=== PATIENT | female | born 1940 | race Caucasian/White ===

== ENCOUNTER 2017-03-29 02:08 | Emergency (ER) | payer MEDICARE, BC ==
[~2017-03-29] VITALS: Ht 160 cm; Wt 79.5 kg
[~2017-03-29 02:08] MED LIST: BETH25 PO; CALC600T10 PO; CENTTAB9 PO; DIOV160T8 PO; ECASA PO; FEXO180 PO; FLOR250C PO; METO25 PO; OMEP20CA5 PO; RALO1TAB13 PO; ROSU20 PO; SYNT100T PO; VITA400C28 PO; VITA400C70 PO
[2017-03-29 02:21] VITALS: BP 165/59; PULSE 94; RESP 18; TEMP 99.9; O2SAT 97
[2017-03-29 02:25] VITALS: RESP 18; O2SAT 97
[2017-03-29] MEDS ORDERED: FLOR250C PO (02:44)
[2017-03-29] MEDS ORDERED: VITA200C3 PO (02:44)
[2017-03-29] MEDS ORDERED: DIOV80TA2 PO (02:44)
[2017-03-29] MEDS ORDERED: VITA250T3 PO (02:44)
[2017-03-29] MEDS ORDERED: ROSU20 PO (02:44)
[2017-03-29] MEDS ORDERED: OMEP20TA93 PO (02:44)
[2017-03-29] MEDS ORDERED: ASPI-516 CHEW (02:44)
[2017-03-29] MEDS ORDERED: METO50TA PO (02:44)
[2017-03-29] MEDS ORDERED: CALC1TAB87 PO (02:44)
[2017-03-29] MEDS ORDERED: LEVO.1 PO (02:44)
[2017-03-29] MEDS ORDERED: BETH25TA2 PO (02:44)
[2017-03-29] MEDS ORDERED: VITA1000 PO (02:44)
[2017-03-29] MEDS ORDERED: SODIUM CHLOR 0.9% 1000 ML INJ 1,000 ML IV SCH (04:18)
--- NOTE | 2017-03-29 04:18 | PD ---
HPI Chief Complaint: GI Complaint Time Seen by Provider: 04:14 Travel History International Travel<30 days: No Contact w/Intl Traveler<30days: No Traveled to known affect area: No History of Present Illness HPI The patient is a 76-year-old female that comes in tonight because of shaking followed by nausea and vomiting. She states the vomiting is only slight, small amount 2. She denies any diarrhea. The patient states that she saw her primary care physician yesterday and complete physical exam was done and a urine infection was found. She was given Bactrim DS but she did not take the medication yet. She does complain of some midline back pain and frequency of urination. She states the urine was cloudy and there were pus cells in the urine yesterday. She has already purchased her Bactrim DS, she just simply did not take it yet. PFSH Past Medical History Arthritis: No Asthma: No Autoimmune Disease: No Blood Disorders: No Anxiety: No Depression: No Heart Rhythm Problems: No Cancer: No Cardiac Catheterization: Yes (05/20/07) Cardiovascular Problems: Yes High Cholesterol: Yes (TAKES MEDS) Chest Pain: No Congestive Heart Failure: No COPD: No Cerebrovascular Accident: Yes (TIA) Coronary Artery Disease: Yes Diabetes: No Diminished Hearing: No Endocrine: Yes (HYPOTHYROID) Gastrointestinal Disorders: Yes (SEVERE GERD) GERD: Yes Glaucoma: No Genitourinary: No Headaches: No Hepatitis: No Hiatal Hernia: No Heparin Induced Thrombocytopen: No Hypertension: Yes (TAKES MEDS) Immune Disorder: No Kidney Stones: No Musculoskeletal: Yes Neurologic: Yes (ANUSYSM IN [facility] OF [place]--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 ) Psychiatric: No Reproductive: No Respiratory: No Integumentary: Yes ( UNDER WOUND CARE TO E FOR DOG BITE- WOUND HEALING WELL) Immunizations Current: Yes Migraines: No Myocardial Infarction: No Renal Failure: No Seizures: No Sickle Cell Disease: No Sleep Apnea: No Thyroid Disease: Yes Ulcer: No Tetanus Vaccination: Never Vaccinated Influenza Vaccination: Yes ?: Not Menopausal: Yes Past Surgical History Abdominal Surgery: Yes (APPENDECTOMY 1947) AICD: No Appendectomy: Yes (1947) Arteriovenous Shunt: No Cardiac Surgery: Yes (heart cath - 2006) Cholecystectomy: No Ear Surgery: No Endocrine Surgery: No Eye Surgery: Yes (cataracs both eyes-REMOVED 2005) Genitourinary Surgery: Yes (07/12/14 INTERSTEM BLADDER PACEMAKER) Gynecologic Surgery: Yes (HYSTERECTOMY/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) Hysterectomy: Yes Insulin Pump: No Joint Replacement: No Neurologic Surgery: No Oral Surgery: Yes (esophageal monomentry - 2006) Pacemaker: No Thoracic Surgery: No Other Surgery: Yes (left breast biopsy - 1991) Social History Alcohol Use: No Tobacco Use: No Substance Use: No Allergies-Medications (Allergen,Severity, Reaction): Coded Allergies: diatrizoate meglumine (Verified Allergy, Severe, FACIAL EDEMA, 03/29/17) gadobenic acid (Verified Allergy, Severe, FACIAL EDEMA, 03/29/17) gadodiamide (Verified Allergy, Severe, FACIAL EDEMA, 03/29/17) gadoteridol (Verified Allergy, Severe, FACIAL EDEMA, 03/29/17) iodixanol (Verified Allergy, Severe, FACIAL EDEMA, 03/29/17) iohexol (Verified Allergy, Severe, FACIAL EDEMA, 03/29/17) naproxen (Verified Allergy, Severe, ANAPHAXIS, 03/29/17) tetanus toxoid, adsorbed (Verified Allergy, Severe, EDEMA, 03/29/17) iodine (Verified Allergy, Unknown, UNKNOWN, 03/29/17) potassium iodide (Verified Allergy, Unknown, UNKNOWN, 03/29/17) povidone-iodine (Verified Allergy, Unknown, UNKNOWN, 03/29/17) sodium iodide (Verified Allergy, Unknown, UNKNOWN, 03/29/17) sodium iodide (Verified Allergy, Unknown, UNKNOWN, 03/29/17) Reported Meds & Prescriptions Reported Meds & Active Scripts Active Zofran (Ondansetron HCl) 4 Mg Tab 4 Mg PO Q6HR PRN Reported Florastor (Saccharomyces Boulardii) 250 Mg Cap 250 Mg PO BID Bethanechol 25 Mg Tab 25 Mg PO BID Calcium 600 with Vitamin D (Calcium Carbonate-Cholecalciferol) 600-400 mg-Unit Tab 2 Tab PO DAILY Vitamin C (Ascorbic Acid) 250 Mg Tab 500 Mg PO TID Vitamin D-1000 (Cholecalciferol) 1,000 Unit Tab 1,000 Units PO DAILY Vitamin E 200 Unit Cap 400 Units PO DAILY Aspirin 81 Mg Chew 81 Mg CHEW DAILY Metoprolol Tartrate 50 Mg Tab 50 Mg PO DAILY Omeprazole 20 Mg Tab 20 Mg PO DAILY Diovan Hct (Valsartan-Hydrochlorothiazide) 80-12.5 Mg Tab 1 Tab PO DAILY Crestor (Rosuvastatin Calcium) 20 Mg Tab 20 Mg PO DAILY Synthroid (Levothyroxine Sodium) 100 Mcg Tab 100 Mcg PO DAILY Review of Systems Except as stated in HPI: all other systems reviewed are Neg Physical Exam Narrative GENERAL: The patient is alert, oriented 3, moderately dehydrated and slight apparent distress with her abdominal discomfort. Her vital signs show blood pressure 165/59 with temperature 99.9 and heart rate of 94 but the rest of the vital signs are normal. SKIN: Focused skin assessment warm/dry. No skin rashes noted. HEAD: Atraumatic. Normocephalic. EYES: Pupils equal and round. No scleral icterus. No injection or drainage. ENT: No nasal bleeding or discharge. Mucous membranes pink and moist. NECK: Trachea midline. No JVD. CARDIOVASCULAR: Regular rate and rhythm. No murmur appreciated. RESPIRATORY: No accessory muscle use. Clear to auscultation. Breath sounds equal bilaterally. GASTROINTESTINAL: Abdomen soft, non-tender and only with some minimal discomfort in the suprapubic area midline., nondistended. Hepatic and splenic margins not palpable. No guarding or rebound is present. No flank tenderness is present. MUSCULOSKELETAL: No obvious deformities. No clubbing. No cyanosis. No edema. NEUROLOGICAL: Awake and alert. No obvious cranial nerve deficits. Motor grossly within normal limits. Normal speech. PSYCHIATRIC: Appropriate mood and affect; insight and judgment normal. Data Data Last Documented VS Vital Signs Date Time Temp Pulse Resp B/P (MAP) Pulse Ox O2 Delivery O2 Flow Rate FiO2 03/29/17 04:37 84 18 140/54 (82) 97 Room Air 03/29/17 02:21 99.9 Orders Orders Basic Metabolic Panel (Bmp) (03/29/17 04:18) Complete Blood Count With Diff (03/29/17 04:18) Urinalysis - C+S If Indicated (03/29/17 04:18) Iv Access Insert/Monitor (03/29/17 04:18) Ecg Monitoring (03/29/17 04:18) Oximetry (03/29/17 04:18) Ondansetron Inj (Zofran Inj) (03/29/17 04:30) Sodium Chlor 0.9% 1000 Ml Inj (Ns 1000 M (03/29/17 04:18) Sodium Chloride 0.9% Flush (Ns Flush) (03/29/17 04:30) Urine Culture (03/29/17 04:15) Ceftriaxone Inj (Rocephin Inj) (03/29/17 05:15) Sulfamet-Trimeth Ds 800-160 Mg (Bactrim (03/29/17 05:15) Ed Discharge Order (03/29/17 05:07) Labs Laboratory Tests Test 03/29/17 03:20 03/29/17 04:15 White Blood Count 9.3 TH/MM3 Red Blood Count 3.93 MIL/MM3 Hemoglobin 11.7 GM/DL Hematocrit 35.2 % Mean Corpuscular Volume 89.6 FL Mean Corpuscular Hemoglobin 29.7 PG Mean Corpuscular Hemoglobin Concent 33.1 % Red Cell Distribution Width 11.5 % Platelet Count 193 TH/MM3 Mean Platelet Volume 7.8 FL Neutrophils (%) (Auto) 90.7 % Lymphocytes (%) (Auto) 5.2 % Monocytes (%) (Auto) 2.4 % Eosinophils (%) (Auto) 1.1 % Basophils (%) (Auto) 0.6 % Neutrophils # (Auto) 8.4 TH/MM3 Lymphocytes # (Auto) 0.5 TH/MM3 Monocytes # (Auto) 0.2 TH/MM3 Eosinophils # (Auto) 0.1 TH/MM3 Basophils # (Auto) 0.1 TH/MM3 CBC Comment DIFF FINAL Differential Comment Blood Urea Nitrogen 13 MG/DL Creatinine 0.84 MG/DL Random Glucose 163 MG/DL Calcium Level 8.6 MG/DL Sodium Level 137 MEQ/L Potassium Level 3.7 MEQ/L Chloride Level 103 MEQ/L Carbon Dioxide Level 26.5 MEQ/L Anion Gap 8 MEQ/L Estimat Glomerular Filtration Rate 66 ML/MIN Urine Color YELLOW Urine Turbidity HAZY Urine pH 7.0 Urine Specific [place] 1.012 Urine Protein TRACE mg/dL Urine Glucose (UA) NEG mg/dL Urine Ketones NEG mg/dL Urine Occult Blood SMALL Urine Nitrite NEG Urine Bilirubin NEG Urine Leukocyte Esterase LARGE Urine RBC 4-9 /hpf Urine WBC 50-99 /hpf Urine Squamous Epithelial Cells 6-8 /hpf Urine Bacteria FEW /hpf Microscopic Urinalysis Comment CULTURE INDICATED MDM Medical Decision Making Medical Screen Exam Complete: Yes Emergency Medical Condition: Yes Medical Record Reviewed: Yes Interpretation(s) The CBC is essentially normal except for 91% neutrophils. The basic metabolic profile shows a glucose of 163 and GFR 66 but is otherwise normal. The urine shows hazy turbidity, trace protein, small occult blood with large leukocyte esterase and 4-9 red cells and 50-99 white cells and few urine bacteria and culture is indicated. Differential Diagnosis Viral gastroenteritis, electrolyte disorder, dehydration, pyelonephritis, cystitis Narrative Course The patient likely has pyelonephritis along with possible viral gastroenteritis. She needs to replace her liquids to establish a good urine flow through her kidneys. She will be given IV Rocephin here as well as by mouth Septra. Diagnosis Primary Impression: Viral gastroenteritis Additional Impressions: Pyelonephritis Moderate dehydration Additional Instructions: Drink plenty of clear liquids at home to establish a good urine flow through your kidneys. The more you drink, the more you will wash the germs away from your kidneys. Follow-up with your primary care physician this week or next week. Med/Other Pt SpecificInfo: Prescription(s) given, No Change to Meds Scripts Ondansetron (Zofran) 4 Mg Tab 4 MG PO Q6HR Y for NAUSEA OR VOMITING, #21 TAB 0 Refills Prov: Walter Hay MD 03/29/17 Disposition: 01 DISCHARGE HOME Condition: Stable Walter Hay MD Mar 29, 2017 04:18
[2017-03-29] MEDS ORDERED: ONDANSETRON HCL 4 MG/2 ML VIAL IVP ONE (04:30)
[2017-03-29] MEDS ORDERED: SODIUM CHLORIDE 0.9% FLUSH 10 ML FLUSH IV FLUSH PRN (04:30)
[2017-03-29 04:37] VITALS: BP 140/54; PULSE 84; RESP 18; O2SAT 97
[2017-03-29 04:37] LABS: BILIRUBIN, URINE NEG (NEG); BLOOD, URINE SMALL (NEG); GLUCOSE,URINE NEG (NEG); KETONE, URINE NEG (NEG); NITRITE,URINE NEG (NEG); URINE LEUKOCYTE ESTERASE LARGE (NEG)
[2017-03-29 04:39] LABS: URINE COLOR YELLOW (YELLW/STRAW)
[2017-03-29 04:39] LABS: AUTOMATED NEUTROPHIL # 8.4 TH/MM3 (1.8-7.7); BASOPHIL # 0.1 TH/MM3 (0-0.2); BASOPHIL % 0.6 % (0.0-2.0); EOSINOPHIL # 0.1 TH/MM3 (0-0.4); EOSINOPHIL % 1.1 % (0.0-4.0); HEMATOCRIT 35.2 % (35.0-46.0); HEMOGLOBIN 11.7 GM/DL (11.6-15.3); LYMPH % 5.2 % (9.0-44.0); LYMPHOCYTE # 0.5 TH/MM3 (1.0-4.8); MEAN CELL VOLUME 89.6 FL (80.0-100.0); MEAN CORPUSCULAR HEMOGLOBIN 29.7 PG (27.0-34.0); MEAN CORPUSCULAR HGB CONC 33.1 % (32.0-36.0); MEAN PLATELET VOLUME 7.8 FL (7.0-11.0); MONO % 2.4 % (0.0-8.0); MONOCYTE # 0.2 TH/MM3 (0-0.9); NEUT % 90.7 % (16.0-70.0); PLATELET COUNT 193 TH/MM3 (150-450); RED BLOOD COUNT 3.93 MIL/MM3 (4.00-5.30); RED CELL DISTRIBUTION WIDTH 11.5 % (11.6-17.2); WHITE BLOOD COUNT 9.3 TH/MM3 (4.0-11.0)
[2017-03-29 04:46] LABS: BACTERIA, URINE FEW /hpf
[2017-03-29 04:49] LABS: CALCIUM 8.6 MG/DL (8.5-10.1)
[2017-03-29 04:50] LABS: BICARBONATE 26.5 MEQ/L (21.0-32.0)
[2017-03-29 04:53] LABS: CREATININE 0.84 MG/DL (0.50-1.00)
[2017-03-29] MEDS ORDERED: ZOFR4TAB PO (05:07)
[2017-03-29] MEDS ORDERED: cefTRIAXone INJ 1,000 MG in SODIUM CHLORIDE 0.9% INJ 100 ML IV ONE (05:15)
[2017-03-29] MEDS ORDERED: SULFAMETHOXAZOLE-TRIMETHOPRIM DS 800-160 MG TAB PO ONE (05:15)
[2017-03-29 05:35] VITALS: BP 144/56; PULSE 77; RESP 18; O2SAT 97
== END 2017-03-29 05:54 | disposition home or self-care (01) ==
LOC: PHED 02:08
DX: A08.4 Viral intestinal infection, unspecified (principal); N12 Tubulo-interstitial nephritis, not specified as acute or chronic; E86.0 Dehydration; E78.00 Pure hypercholesterolemia, unspecified; I25.10 Atherosclerotic heart disease of native coronary artery without angina pectoris; E03.9 Hypothyroidism, unspecified; I10 Essential (primary) hypertension; B96.20 Unspecified Escherichia coli [E. coli] as the cause of diseases classified elsewhere; Z16.11 Resistance to penicillins; Z86.73 Personal history of transient ischemic attack (TIA), and cerebral infarction without residual deficits; Z79.82 Long term (current) use of aspirin
CPT/HCPCS: 80048; 81001; 85025; 87077; 87086; 87186; 96374; 96375; 99284; J0696; J2405; J7030